=== PATIENT | male | born 1965 | race Caucasian/White ===

== ENCOUNTER 2018-01-03 08:38 | Emergency (ER) | payer OTHER ==
--- NOTE | 2018-01-03 09:01 | EDPHY ---
H & P Stated Complaint: swelling and pain to right calf - R knee surgery 12/04/17. Time Seen by Provider: 01/03/18 08:55 HPI/ROS: CHIEF COMPLAINT: Concerns about possible DVT HISTORY OF PRESENT ILLNESS: 52-year-old male postop day 1 post right knee arthroscopic meniscal surgery by Dr. Fred Romero awoke this morning with right calf pain and cramping. Concerned about DVT. He has prior history of left lower extremity DVT in 2009 when he was postoperative from a right shoulder surgery. He is not currently on anticoagulants. He denies: Discoloration distally, paresthesia, chest pain, dyspnea, back pain, syncope, near syncope. REVIEW OF SYSTEMS: 10 systems reviewed and negative with the exception of the elements mentioned in the history of present illness PAST MEDICAL & SURGICAL HISTORY: Protein C deficiency. Postop day 1 post right knee arthroscopic meniscal surgery by Dr. Fred Romero. Prior DVT history postsurgical in 2009. SOCIAL HISTORY: nonsmoker PHYSICAL EXAM (Prior to examination, patient consented to physical exam, hands were washed and my usual and customary physical exam procedures followed) 1) GENERAL: Well-developed, well-nourished, alert and oriented. Appears to be in no acute distress. 2) HEAD: Normocephalic, atraumatic 3) HEENT: Pupils equal, round, reactive to light bilaterally. Sclera anicteric. 4) NECK: Full range of motion, no meningeal signs. 5) LUNGS: Clear auscultation bilaterally, no wheezes, no rhonchi, no retractions. 6) HEART: Regular rate and rhythm, no murmur, no heave, no gallop. 7) ABDOMEN: No guarding, no rebound, no focal tenderness, negative McBurney's, negative Howell's, negative Rovsing's, negative peritoneal sign, 8) MUSCULOSKELETAL: Right lower extremity: Anterior dressing in place. Knee shows no signs of infection. There is mild asymmetry, right calf greater than left. Soft compartments. DP PT pulses present and brisk. Normal color and temperature distally. Moving all extremities, no focal areas of tenderness, no obvious trauma. No peripheral edema or discoloration. 9) BACK: No CVA tenderness, no midline vertebral tenderness, no fluctuance, no step-off, no obvious trauma, no visual or palpable abnormality. 10) SKIN: No rash, no petechiae. 11) Psychiatric: Patient is oriented X 3, there is no agitation. DIFFERENTIAL DIAGNOSIS: In no particular order including but not limited to compartment syndrome, septic arthritis, DVT, postoperative pain and swelling - Personal History Current Tetanus Diphtheria and Acellular Pertussis (TDAP): Unsure - Medical/Surgical History Hx Asthma: Yes Hx Chronic Respiratory Disease: No Hx Diabetes: No Hx Cardiac Disease: No Hx Renal Disease: No Hx Cirrhosis: No Hx Alcoholism: No Hx HIV/AIDS: No Hx Splenectomy or Spleen Trauma: No Other PMH: 2009 - Right leg DVT. Asthma. - Social History Smoking Status: Never smoked Constitutional: Initial Vital Signs Temperature (C) 36.6 C 01/03/18 08:42 Heart Rate 64 01/03/18 08:42 Respiratory Rate 16 01/03/18 08:42 Blood Pressure 157/79 H 01/03/18 08:42 O2 Sat (%) 96 01/03/18 08:42 O2 Delivery Mode Room Air Allergies/Adverse Reactions: ibuprofen [Ibuprofen] Allergy (Severe, Verified 08/03/09 17:15) ORAL SWELLING aspirin [Aspirin] Allergy (Unknown, Verified 11/19/09 20:26) ORAL SWELLING Home Medications: Medication Instructions Recorded Levothyroxine 08/03/09 Lisinopril 08/03/09 Apixaban [Eliquis 30-day Starter 1 kit PO AD #1 kit 01/03/18 Pack] Medical Decision Making - Diagnostics Imaging Results: Imaging Impressions Extremity Venous Study 01/03/18 08:55 Impression: Positive deep venous thrombosis right calf posterior tibial vein. Findings and recommendations discussed with Emergency Department physicianElvie at 9:48 hour, 01/03/2018. Final report concurs with initial preliminary interpretation. Images reviewed myself ED Course/Re-evaluation: 9:01 a.m.: Will obtain a lower extremity ultrasound. Doubt septic arthritis. Doubt compartment syndrome. I saw this patient independently based on established practice protocols. Care of patient under supervision of secondary supervising physician Dr José Miguel Davis with whom I discussed case. 10:05 a.m.: Consultation with CATHY Anderson with Dr. Fred Romero. CATHY Anderson is familiar with the patient care. She is in agreement that she think the patient should initiate anticoagulant therapy as he less mobile and is in the postoperative period. Patient informs me at this time that he has previously seen a medical detailist at [facility] in 2009 after he developed an upper extremity DVT postsurgically was told that he a protein C deficiency. He has not remember the name of this medical detailist/oncologist but does state that he would be able follow-up. He has not have primary care provider established I stressed the importance of establishing primary care and given the name of on-call outpatient medicine provider Dr. Zhanna Lazo. Departure - Departure Disposition: Home, Routine, Self-Care Clinical Impression: dvt right posterior tibial Condition: Good Instructions: Apixaban (By mouth), Deep Vein Thrombosis (ED) Additional Instructions: Return to the ER immediately if you experience discoloration, have worsening pain, numbness, tingling, or any other symptoms that concern you. If you received x-rays in the emergency department today, be advised, that ligamentous , tendon, muscular, and other non-bony injury cannot be fully ruled out. Try to keep your affected extremity elevated above the level of your chest, and keep cold packs on the affected area, for the next 48 hours. Referrals: Zhanna Lazo DO [Doctor of Osteopathy] - 2-3 days, call for appt. Fred Romero MD [Medical Doctor] - 2-3 days, call for appt. Prescriptions: Apixaban [Eliquis 30-day Starter Pack] 1 kit PO AD #1 kit
[2018-01-03 10:40] VITALS: BP 147/93
== END 2018-01-03 10:55 | disposition home or self-care (01) ==
DX: I82.441 Acute embolism and thrombosis of right tibial vein (principal)